=== PATIENT | female | born 1980 | race Asian ===

== ENCOUNTER 2019-03-04 18:30 | Emergency (ER) | payer SELFPAY ==
[~2019-03-04] VITALS: Ht 160 cm; Wt 50.0 kg
[2019-03-04 19:08] LABS: URINE BILIRUBIN - DIPSTICK NEGATIVE (NEGATIVE); URINE BLOOD DIPSTICK LARGE (NEGATIVE); URINE COLOR YELLOW; URINE GLUCOSE - DIPSTICK NEGATIVE (NEGATIVE); URINE KETONE NEGATIVE (NEGATIVE); URINE LEUK ESTERASE TRACE (NEGATIVE); URINE NITRITE - DIPSTICK NEGATIVE (Negative); URINE PH 7.5 (4.5-8.0); URINE PROTEIN - DIPSTICK TRACE mg/dL (NEG-TRACE); URINE SPECIFIC GRAVITY 1.015
[2019-03-04 19:11] LABS: URINE SQUAMOUS EPITHELIAL CELL FEW EPI/hpf (0-FEW)
[2019-03-04] MEDS ORDERED: MACRODANTIN100 MG PO (20:28)
[2019-03-04] MEDS ORDERED: CIPROFLOXACN500 MG PO (20:28)
[2019-03-04 20:41] VITALS: BP 110/68
== END 2019-03-04 20:41 | disposition home or self-care (01) | DRG 690 ==
LOC: ED 18:30
PROVIDERS: Emergency Medicine
DX: N39.0 Urinary tract infection, site not specified (principal); B95.7 Other staphylococcus as the cause of diseases classified elsewhere